=== PATIENT | male | born 1990 | race Caucasian/White ===

== ENCOUNTER 2017-07-11 15:09 | Emergency (ER) | payer BC ==
[~2017-07-11] VITALS: Ht 170.2 cm; Wt 99.8 kg
[~2017-07-11 15:09] MED LIST: FLOVENT; NOHOMEMEDICATIONS; NORCO 5-325 TA1 EACH PO; OMEPRAZOLE20 MG PO; PREDNISONE
[2017-07-11] MEDS ORDERED: WELLBUTRIN 100100 MG PO (15:21)
[2017-07-11] MEDS ORDERED: WELLBUTRIN XL300 MG PO ×2 (15:21→15:23)
[2017-07-11] MEDS ORDERED: GRALISE600 MG PO (15:22)
[2017-07-11] MEDS ORDERED: CYMBALTA60 MG PO (15:23)
== END 2017-07-11 15:53 | disposition home or self-care (01) ==
LOC: M.ERS 15:09
DX: G62.9 Polyneuropathy, unspecified (principal); F10.99 Alcohol use, unspecified with unspecified alcohol-induced disorder; F12.10 Cannabis abuse, uncomplicated; Z98.890 Other specified postprocedural states; Z88.2 Allergy status to sulfonamides